=== PATIENT | female | born 1980 ===

== ENCOUNTER 2017-12-04 09:50 | Outpatient (CLI) | payer OTHER ==
[~2017-12-04] VITALS: Ht 154.9 cm; Wt 54.4 kg
== END 2017-12-04 10:10 | disposition home or self-care (01) ==
LOC: OFIC 805 09:50
DX: J01.80 Other acute sinusitis (principal); J31.0 Chronic rhinitis; G44.89 Other headache syndrome

== ENCOUNTER 2017-12-25 09:33 | Outpatient (CLI) | payer OTHER ==
[~2017-12-25] VITALS: Ht 152.4 cm; Wt 54.4 kg
[2017-12-25] MEDS ORDERED: CEFUROXIME500 MG PO (11:02)
[2017-12-25] MEDS ORDERED: ZYRTEC10 MG PO (11:02)
[2017-12-25] MEDS ORDERED: FLONASE16 GM NASAL (11:02)
== END 2017-12-25 09:45 | disposition home or self-care (01) ==
LOC: OFIC 805 09:33
DX: J31.0 Chronic rhinitis (principal); J32.8 Other chronic sinusitis; J34.2 Deviated nasal septum; G44.89 Other headache syndrome; J39.2 Other diseases of pharynx; J39.8 Other specified diseases of upper respiratory tract

== ENCOUNTER 2018-03-19 09:43 | Outpatient (CLI) | payer OTHER ==
[~2018-03-19 09:43] MED LIST: CEFUROXIME500 MG PO; FLONASE16 GM NASAL; ZYRTEC10 MG PO
[2018-03-19] MEDS ORDERED: FLONASE16 GM NASAL (10:53)
[2018-03-19] MEDS ORDERED: ZYRTEC10 MG PO (10:53)
== END 2018-03-19 10:00 | disposition home or self-care (01) ==
LOC: OFIC 805 09:43
DX: J32.8 Other chronic sinusitis (principal); J31.0 Chronic rhinitis; J34.2 Deviated nasal septum